=== PATIENT | male | born 1955 | race Caucasian/White ===

== ENCOUNTER 2018-05-30 18:55 | Emergency (ER) | payer MEDICARE ==
[2018-05-30] MEDS ORDERED: Acetaminophen TAB* 325 MG PO ONE (19:37)
--- NOTE | 2018-05-30 19:38 | UC ---
Respiratory Complaint HPI - HPI Summary HPI Summary: 63-year-old male comes in noting care with chief complaint of febrile illness with cough chest congestion. Patient reports he's had some upper respiratory tract infection symptoms for couple of weeks. Last couple of days he has been more fatigued. He's been sleeping more. Today his relates that he's been confused. Here in clinic finding temperature 102.5. No complaint of any chest pain or edema or dysuria or abdominal pain. Shortness breath is worse with activity. Better with rest. - History of Current Complaint Chief Complaint: UCRespiratory Stated Complaint: HIGH BP,COUGH Time Seen by Provider: 05/30/18 19:01 Pain Intensity: 0 - Allergies/Home Medications Allergies/Adverse Reactions: Allergies Allergy/AdvReac Type Severity Reaction Status Date / Time hydrocodone Allergy Difficulty Verified 05/30/18 19:01 Breathing Penicillins Allergy Difficulty Verified 05/30/18 19:01 Breathing Home Medications: Home Medications Amlodipine Besylate [Amlodipine 2.5 mg tab] 5 mg PO DAILY 05/30/18 [History Confirmed 05/30/18] Furosemide TAB* [Lasix TAB*] 20 mg PO DAILY 05/30/18 [History Confirmed 05/30/18 ] Losartan TAB* [Cozaar TAB*] 100 mg PO DAILY 05/30/18 [History Confirmed 05/30/18 ] Metoprolol Tartrate 25 mg PO BID 05/30/18 [History Confirmed 05/30/18] Simvastatin [Zocor] 40 mg PO DAILY 05/30/18 [History Confirmed 05/30/18] Sulfamethox/Trimethoprim DS* [Bactrim DS 800/160 TAB*] 1 tab PO TID 05/30/18 [ History Confirmed 05/30/18] predniSONE TAB* [Deltasone 20 MG TAB*] 20 mg PO DAILY 05/30/18 [History Confirmed 05/30/18] PMH/Surg Hx/FS Hx/Imm Hx Previously Healthy: Yes - KIDNEY PROBLEM, PSORIATIC ARTHRITIS Endocrine History: Dyslipidemia Cardiovascular History: Hypertension - Surgical History Surgery Procedure, Year, and Place: kidney biopsy - Family History Known Family History: Positive: Non-Contributory - Social History Alcohol Use: None Substance Use Type: None Smoking Status (MU): Former Smoker Review of Systems All Other Systems Reviewed And Are Negative: Yes Constitutional: Positive: Fever, Chills, Fatigue Skin: Positive: Negative Eyes: Positive: Negative ENT: Positive: Nasal Discharge, Sinus Congestion Respiratory: Positive: Shortness Of Breath, Cough Cardiovascular: Positive: Negative Gastrointestinal: Positive: Negative Genitourinary: Positive: Negative Motor: Positive: Weakness Neurovascular: Positive: Negative Musculoskeletal: Positive: Negative Neurological: Positive: Weakness Psychological: Positive: Negative Is Patient Immunocompromised?: No Physical Exam Triage Information Reviewed: Yes Completion Of Physical Exam Limited Due To: Altered Mental Status - MILDLY CONFUSED. Appearance: No Pain Distress, Well-Nourished, Ill-Appearing - MILD/MODERATED Vital Signs: Initial Vital Signs Temp 102.5 F 05/30/18 18:58 Pulse 98 05/30/18 18:58 Resp 18 05/30/18 18:58 BP 118/88 05/30/18 18:58 Pulse Ox 89 05/30/18 18:58 Vital Signs Reviewed: Yes Eye Exam: Normal Eyes: Positive: Conjunctiva Clear ENT: Positive: Nasal congestion, Nasal drainage Neck exam: Normal Neck: Positive: Supple Respiratory: Positive: No respiratory distress, Crackles, Rhonchi Cardiovascular: Positive: Tachycardia Abdomen Description: Positive: Nontender, Soft Musculoskeletal: Positive: Strength Intact, ROM Intact, No Edema Neurological: Positive: Muscle Tone Normal, Other: - MILD CONFUSION Psychological: Positive: Age Appropriate Behavior Skin Exam: Normal Diagnostics - EKG Cardiac Rate: Tachycardia - AT 1910 Cardiac Rhythm: Other Rhythm: New - 109 BPM, MULTIPLE PVCS AND PACS Ectopy: PVCs, PACs ST Segment: Normal Respiratory Course/Dx - Course Course Of Treatment: Patient has a fever is hypoxic or tachycardic and mildly confused. Scattered rhonchi on examination. Probable sepsis potentially from pneumonia. Patient is being transported to the emergency department by ambulance. - Differential Dx/Diagnosis Provider Diagnosis: Hypoxia, Fever, Confusion Discharge - Sign-Out/Discharge Documenting (check all that apply): Patient Departure All imaging exams completed and their final reports reviewed: No Studies - Discharge Plan Condition: Fair Disposition: TRANS HIGHER LVL OF CARE FAC Referrals: Stef Franco MD [Primary Care Provider] - - Billing Disposition and Condition Condition: FAIR Disposition: Trans Higher Lvl of Care Fac
[2018-05-30 19:39] VITALS: BP 140/93
== END 2018-05-30 19:58 | disposition short-term general hospital (02) ==
LOC: UCEAST 18:55
DX: R50.9 Fever, unspecified (principal); R09.02 Hypoxemia; R41.0 Disorientation, unspecified; I10 Essential (primary) hypertension; Z87.891 Personal history of nicotine dependence; Z88.0 Allergy status to penicillin; Z88.5 Allergy status to narcotic agent
CPT/HCPCS: 99203; A9270-GY; G0463

== ENCOUNTER 2020-01-26 11:00 | Observation (INO) ==
[2020-02-09] MEDS ORDERED: Lactated Ringers 1000 ml BAG 1,000 ML IV SCH ×2 (06:00)
[2020-02-09] MEDS ORDERED: Buffered Lidocaine 1% SYRIN 1 ml INTRADERM ONE ×3 (06:00→07:26)
[2020-02-09] MEDS ORDERED: ceFAZolin 2 GM PREMIX 0 GM/0 ML BAG ONE (07:26)
[2020-02-09 08:13] LABS: INR 1.04 (0.82-1.09)
[2020-02-09] MEDS ORDERED: Clindamycin 900 MG/D5W BAG 900 MG/50 ML BAG IVPB ONE (08:21)
[2020-02-09] MEDS ORDERED: Midazolam 2 mg/2 ml VIAL 1 mg/ml 2 ml VIAL (2 mg) ONE ×2 (08:25→10:36)
[2020-02-09] MEDS ORDERED: ROPIVACAINE 5 MG/ML 30 ML BTL (0.5%) ONE ×2 (08:25→09:04)
[2020-02-09] MEDS ORDERED: Dexamethasone IV 4 MG/ML VIAL 1 ml VIAL ONE (08:25)
[2020-02-09] MEDS ORDERED: Lidocaine 2% PF 5 ML VIAL ONE (09:00)
[2020-02-09] MEDS ORDERED: fentaNYL 100 mcg/2 ml 50 MCG/ML VIAL ONE ×2 (10:11→10:32)
[2020-02-09] MEDS ORDERED: fentaNYL 100 mcg/2 ml 50 MCG/ML VIAL IV PRN (11:23)
[2020-02-09] MEDS ORDERED: Naloxone 0.4 mg VIAL 0.4 mg/ml 1 ml VIAL IV PRN (11:23)
[2020-02-09] MEDS ORDERED: diPHENhydraMINE IV 50 MG/ML 1 ml VIAL (BENADRYL) IV PRN ×2 (11:23→12:47)
[2020-02-09] MEDS ORDERED: Propofol 10 MG/ML 20 ML BTL ONE (12:09)
[2020-02-09] MEDS ORDERED: diPHENhydraMINE 25 mg TAB PO PRN (12:47)
[2020-02-09] MEDS ORDERED: Ondansetron 4 mg VIAL 2 MG/ML 2 ml VIAL IV PRN (12:47)
[2020-02-09] MEDS ORDERED: Morphine 2 MG/ML SYRINGE IV PRN (12:47)
[2020-02-09] MEDS ORDERED: Magnesium Hydroxide LIQ 30 ML UDC PO PRN (12:47)
[2020-02-09] MEDS ORDERED: Ondansetron ODT 4 mg TAB 4 MG TAB PO PRN (12:47)
[2020-02-09] MEDS ORDERED: Lactulose 30 ml UDC PO PRN (12:47)
[2020-02-09] MEDS ORDERED: oxyCODONE/Acetamin 5/325 mg TAB ONE (13:42)
[2020-02-09] MEDS: oxyCODONE/Acetamin 5/325 mg TAB PO PRN ×3 (13:43→21:54)
[2020-02-09] MEDS: Lactated Ringers 1000 ml BAG 1,000 ML IV SCH (15:14)
[2020-02-09] MEDS: Clindamycin 600 MG/D5W BAG 600 MG/50 ML BAG IV SCH (17:28)
[2020-02-09] MEDS ORDERED: Potassium Chlor 20 meq TAB.ER PO SCH (18:00)
[2020-02-09] MEDS: Magnesium Hydroxide LIQ 30 ML UDC PO SCH (21:54)
[2020-02-10] MEDS: oxyCODONE/Acetamin 5/325 mg TAB PO PRN ×3 (01:57→10:26)
[2020-02-10] MEDS: Clindamycin 600 MG/D5W BAG 600 MG/50 ML BAG IV SCH ×2 (01:57→10:02)
[2020-02-10] MEDS: Lactated Ringers 1000 ml BAG 1,000 ML IV SCH (01:59)
[2020-02-10 06:27] LABS: Hematocrit 35 % (42-52); Hemoglobin 11.9 g/dL (14.0-18.0); Mean Platelet Volume 9.4 fL (7.4-10.4); Platelet Count 183 10^3/uL (150-450)
[2020-02-10 06:39] LABS: BUN/Creatinine Ratio 22.9 (8-20); Calcium 9.2 mg/dL (8.6-10.3); EGFR African American 81.9 (>60); EGFR Non-African American 67.7 (>60); Potassium 3.8 mmol/L (3.5-5.0)
[2020-02-10 07:38] VITALS: BP 140/73
[2020-02-10] MEDS: Magnesium Hydroxide LIQ 30 ML UDC PO SCH (08:55)
[2020-02-10] MEDS ORDERED: Vitamin THERAPEUTIC TAB PO SCH (09:00)
== END 2020-02-10 11:15 | disposition home or self-care (01) ==
LOC: AA 02-09 07:22 → INTOOBSV 02-09 07:22 → SSU 02-09 14:59
PROVIDERS: ADMIT Orthopaedic Surgery Adult Reconstructive Orthopaedic Surgery; ATTEND Orthopaedic Surgery Adult Reconstructive Orthopaedic Surgery

== ENCOUNTER 2020-08-05 02:57 | Inpatient (IN) ==
[2020-08-05 03:56] LABS: ABS Basophils 0.1 10^3/ul (0-0.2); ABS Eosinophils 0.2 10^3/ul (0-0.6); ABS Monocytes 0.4 10^3/ul (0-0.8); ABS Neutrophils 7.3 10^3/ul (1.5-7.7); Eosinophil % 1.9 %; Hematocrit 40 % (42-52); Hemoglobin 13.1 g/dL (14.0-18.0); Lymphocyte % 10.9 %; Mean Corpuscular HGB Conc 33 g/dL (31-36); Mean Corpuscular Hemoglobin 29 pg (27-31); Mean Corpuscular Volume 89 fL (80-94); Mean Platelet Volume 9.2 fL (7.4-10.4); Platelet Count 194 10^3/uL (150-450); Red Blood Count 4.49 10^6 /uL (4.18-5.48); Red Cell Distribution Width 17 % (10-15); White Blood Count 8.9 10^3/uL (3.5-10.8)
[2020-08-05 04:08] LABS: INR 1.38 (0.82-1.09)
[2020-08-05 04:14] LABS: ALT 15 U/L (7-52); AST 14 U/L (13-39); Albumin 4.2 g/dL (3.2-5.2); Albumin/Globulin Ratio 1.8 (1-3); Alkaline Phosphatase 103 U/L (34-104); Anion Gap 6 mmol/L (2-11); Blood Urea Nitrogen 25 mg/dL (6-24); CO2 Carbon Dioxide 27 mmol/L (22-32); Calcium 9.3 mg/dL (8.6-10.3); Chloride 109 mmol/L (101-111); EGFR African American 68.4 (>60); EGFR Non-African American 56.6 (>60); Globulin 2.3 g/dL (2-4); Glucose 108 mg/dL (70-100); Potassium 3.8 mmol/L (3.5-5.0); Sodium 142 mmol/L (135-145); Total Protein 6.5 g/dL (6.4-8.9)
[2020-08-05] MEDS ORDERED: Furosemide 40 mg/4 ml IV VIAL IV SLOW PU ONE (05:31)
[2020-08-05] MEDS ORDERED: Nitro 2% OINT (Nitroglycerin) 1 INCH/PAK TOPICAL ONE (05:32)
[2020-08-05 06:50] LABS: Troponin I 0.11 ng/mL (<0.03)
[2020-08-05 07:33] LABS: TSH Ultra Thyroid Stim Horm 2.97 mcIU/mL (0.34-5.60)
[2020-08-05] MEDS ORDERED: Heparin DRIP 25,000 UNITS BAG 25,000 UNITS/500 ML BAG IV SCH (07:45)
[2020-08-05] MEDS ORDERED: Heparin 5000 UNITS/ML 1 mL VIAL IV SCH (08:00)
[2020-08-05 09:47] LABS: Anion Gap 7 mmol/L (2-11); Blood Urea Nitrogen 23 mg/dL (6-24); CO2 Carbon Dioxide 30 mmol/L (22-32); Calcium 9.4 mg/dL (8.6-10.3); Chloride 107 mmol/L (101-111); EGFR African American 67.2 (>60); EGFR Non-African American 55.6 (>60); Glucose 103 mg/dL (70-100); Potassium 3.9 mmol/L (3.5-5.0); Sodium 144 mmol/L (135-145)
[2020-08-05] MEDS ORDERED: Perflutren Lipid Microsphere 3 ML VIAL ONE (09:57)
[2020-08-05] MEDS ORDERED: NS 0.9% 1000 ml BAG 1,000 ML IV SCH ×2 (10:15→13:30)
[2020-08-05] MEDS ORDERED: Heparin 2 UNITS/ML 1000 mls 2,000 ML IV ONE (10:34)
[2020-08-05] MEDS ORDERED: Iohexol 350 (CONTRAST) 200 ML MDV IV ONE (10:35)
[2020-08-05] MEDS ORDERED: Lidocaine 1% VIAL 10 MG/ML VIAL ONE (10:35)
[2020-08-05] MEDS ORDERED: Iodixanol 320 (CONTRAST) 100 ML SDV ONE ×3 (10:38→11:42)
[2020-08-05] MEDS ORDERED: nitroGLYCERIN DRIP 25,000 MCG/250 ML BTL ONE (10:39)
[2020-08-05] MEDS ORDERED: VERAPAMIL 2.5 MG/ML 2 ML VIAL ** 5 mg/2 ml ONE (10:39)
[2020-08-05] MEDS ORDERED: Heparin 1,000 UNIT/ML 10 ml (10,000 UNITS) CATHLAB/DIALYSIS ONE (10:39)
[2020-08-05] MEDS ORDERED: fentaNYL 100 mcg/2 ml 50 MCG/ML VIAL ONE (10:59)
[2020-08-05] MEDS ORDERED: Midazolam 5 mg/5 ml VIAL 1 mg/ml 5 ml VIAL (5 mg) ONE (10:59)
[2020-08-05] MEDS ORDERED: Bivalirudin 250 MG VIAL ONE (11:29)
[2020-08-05] MEDS ORDERED: Furosemide 40 mg/4 ml IV VIAL IV ONE (15:00)
[2020-08-05 15:29] LABS: Troponin I 0.12 ng/mL (<0.03)
[2020-08-05] MEDS: Potassium Chlor 20 meq TAB.ER PO SCH (17:54)
[2020-08-05] MEDS ORDERED: Potassium Chlor 20 meq TAB.ER PO ONE (18:00)
[2020-08-06 05:28] LABS: ABS Basophils 0.1 10^3/ul (0-0.2); ABS Eosinophils 0.1 10^3/ul (0-0.6); ABS Lymphocytes 1.2 10^3/ul (1.0-4.8); ABS Monocytes 0.6 10^3/ul (0-0.8); ABS Neutrophils 8.3 10^3/ul (1.5-7.7); Eosinophil % 1.1 %; Hematocrit 41 % (42-52); Hemoglobin 13.5 g/dL (14.0-18.0); Mean Corpuscular HGB Conc 33 g/dL (31-36); Mean Corpuscular Hemoglobin 29 pg (27-31); Mean Corpuscular Volume 89 fL (80-94); Mean Platelet Volume 9.2 fL (7.4-10.4); Platelet Count 222 10^3/uL (150-450); Red Blood Count 4.67 10^6 /uL (4.18-5.48); Red Cell Distribution Width 17 % (10-15); White Blood Count 10.4 10^3/uL (3.5-10.8)
[2020-08-06 05:45] LABS: Albumin 4.1 g/dL (3.2-5.2); Albumin/Globulin Ratio 1.6 (1-3); Calcium 9.3 mg/dL (8.6-10.3); EGFR African American 81.6 (>60); EGFR Non-African American 67.5 (>60); Globulin 2.5 g/dL (2-4); HDL Cholesterol 38.7 mg/dL; Potassium 3.6 mmol/L (3.5-5.0); Total Bilirubin 2.2 mg/dL (0.2-1.0); Total Protein 6.6 g/dL (6.4-8.9)
[2020-08-06 05:46] LABS: Activated Partial Thrombo Time 33.1 seconds (26.0-38.0); INR 1.26 (0.82-1.09)
[2020-08-06 08:15] LABS: Magnesium 2.1 mg/dL (1.9-2.7)
[2020-08-06] MEDS ORDERED: Aspirin EC 81 mg TAB.EC (enteric coated) ONE (08:25)
[2020-08-06] MEDS: Potassium Chlor 20 meq TAB.ER PO SCH (17:47)
[2020-08-07 12:12] VITALS: BP 108/72
== END 2020-08-07 13:00 | disposition home or self-care (01) ==
LOC: ED 02:57 → MEDTELE 07:49 → ICU 12:30 → MEDTELE 08-06 16:32
PROVIDERS: ADMIT Internal Medicine; ATTEND Student in an Organized Health Care Education/Training Program